=== PATIENT | male | born 1970 | race Hispanic/Latino ===

== ENCOUNTER 2020-06-21 14:57 | Emergency (ER) | payer OTHER ==
[~2020-06-21 14:57] MED LIST: ACYCLOVIR800 MG OR; NO HOME MEDS
[2020-06-21] MEDS ORDERED: CLARITIN10 M1 PO (16:35)
[2020-06-21] MEDS ORDERED: AFRIN NASAL SP0.05 % (16:35)
[2020-06-21 16:40] VITALS: BP 155/74
== END 2020-06-21 16:40 | disposition home or self-care (01) | DRG 156 ==
LOC: ED 14:57
DX: R09.81 Nasal congestion (principal); H83.8X3 Other specified diseases of inner ear, bilateral